=== PATIENT | female | born 1980 | race Caucasian/White ===

== ENCOUNTER 2024-07-12 10:38 | Emergency (ER) | payer BC ==
[~2024-07-12] VITALS: Ht 175.3 cm; Wt 68.0 kg
[2024-07-12 10:46] VITALS: BP 121/70; PULSE 78; RESP 18; TEMP 36.9; O2SAT 99
== END 2024-07-12 12:06 | disposition home or self-care (01) ==
LOC: ER 10:38
DX: S09.90XA Unspecified injury of head, initial encounter (principal); H93.19 Tinnitus, unspecified ear; R68.84 Jaw pain; Y08.89XA Assault by other specified means, initial encounter; Y93.89 Activity, other specified; Y92.89 Other specified places as the place of occurrence of the external cause; Y99.8 Other external cause status
CPT/HCPCS: 99281